=== PATIENT | female | born 1975 | race Caucasian/White ===

== ENCOUNTER 2016-06-23 06:21 | Inpatient (IN) | payer BC ==
--- NOTE | 2016-06-07 16:25 | HP ---
ADMISSION HISTORY AND PHYSICAL: DATE OF ADMISSION: 06/23/16 CHIEF COMPLAINT: Morbid obesity. HISTORY OF PRESENT ILLNESS: This is a 41-year-old female with type 2 diabetes who first presented to our office in January 2016 for bariatric surgical evaluation. She met with Dr. Camacho at that time and has had subsequent medically supervised weight loss visits. Baseline lab work on 01/19/16 showed normal serum TSH and morning cortisol. Her other labs were normal. Her vitamin D was in the low normal range and she has recently started a vitamin D supplement. She had had a prior EGD with Dr. Kendall in 2014 that was normal ( no evidence of hiatal hernia or significant evidence of reflux disease). A CLOtest was positive and she was treated for Helicobacter with resolution of her preexisting GERD symptoms. She has completed the remainder of the bariatric preoperative workup and has had a chance to discuss any questions with Dr. Camacho. She understands the indications for surgery, the risks, benefits and alternatives. She would like to proceed as scheduled with laparoscopic sleeve gastrectomy. PAST MEDICAL HISTORY: 1. Morbid obesity. 2. Type 2 diabetes. 3. PCOS. 4. GERD (see above). PREVIOUS SURGERIES: Right oophorectomy, 2005, for benign disease with prior cystectomy (she has experienced postoperative nausea and vomiting). CURRENT MEDICATIONS: 1. Metformin 500 mg b.i.d. 2. Levonest once daily (she will hold as of today in preparation for surgery because of DVT risk). 3. Vitamin D 1000 IU once daily. DRUG ALLERGIES: COMPAZINE (muscle contractions). IODINE (local reaction). BEE STINGS (local reaction). FAMILY HISTORY: Significant for colon cancer in her father who is living. Diabetes and morbid obesity in her mother who is living. There is no known family history of anesthesia problems, bleeding or clotting disorders. SOCIAL HISTORY: The patient is . She has an 11-year-old daughter at home. 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 She denies use of tobacco. Drinks alcohol rarely and denies use of other drugs. REVIEW OF SYSTEMS: General: No recent constitutional symptoms or acute illnesses. Cardiovascular: No chest pain, palpitations, history of hypertension , or heart murmur. Respiratory: No history of asthma, chronic cough, or shortness of breath. GI: See above. No lower GI symptoms. She did undergo colonoscopy also in 2014, which was a normal study with recommended followup of 5 years. : No problems reported. DIRECTOR PRODUCT DEVELOPMENT: She is up to date within the past year for breast and pelvic exams as well as mammogram and Pap smear, all reportedly normal. Endocrine: She is treated for type 2 diabetes. There is no history of thyroid dysfunction. She has been treated for PCOS, though has been asymptomatic recently. PHYSICAL EXAMINATION GENERAL: Well-nourished morbidly obese female in no acute distress. VITAL SIGNS: Height 69 inches, weight 279 pounds, BMI 41.2. Temperature 99.3, blood pressure 138/86, pulse 62, respirations 16. HEENT: Pupils equal, round, and reactive. EOMs intact. No conjunctival pallor. Oropharynx: Teeth in good repair. No intraoral lesions. NECK: No lymphadenopathy, thyromegaly, or masses. LUNGS: Clear to auscultation. No wheezes. HEART: Regular rate and rhythm. No murmur noted. BREASTS: Not examined. ABDOMEN: Soft, nontender to palpation. No palpable masses or organomegaly, though exam is limited by body habitus. EXTREMITIES: No edema. GENITALIA AND RECTAL: Not done. BACK: No spinous process or CVA tenderness. NEUROLOGICAL: Grossly intact. SKIN: Warm and dry. No suspicious rashes or lesions noted. She does have a slightly hyperpigmented, scaly-appearing rash in the upper abdomen and lower inframammary folds, possibly consistent with a fungal infection, i.e., pityriasis. There are no open skin lesions or signs of secondary infection. IMPRESSION: Morbid obesity. PLAN/RECOMMENDATIONS: Laparoscopic sleeve gastrectomy. AMBROSE GAGE CC: Dr. Alyssa Pollard; Rhonda Francois NP, at [facility] * [id number]/[facility] #: [id number] [facility]ITAL[facility]
[~2016-06-23 06:21] MED LIST: Buffered Lidocaine 1% SYRIN* 3 ML/SYR SYRINGE INTRADERM ONE; Famotidine IV* 10 MG/ML 2 ML (20 mg) IV ONE; Ondansetron INJ* 2 MG/ML VIAL IV PRN
[2016-06-23] MEDS ORDERED: ceFAZolin 2 GM PREMIX(*) 2 GM/50 ML BAG IVPB ONE (06:27)
[2016-06-23] MEDS ORDERED: ceFAZolin 1 GM in Dextrose (*) 1 GM/50 ML BAG IVPB ONE (06:27)
[2016-06-23] MEDS ORDERED: Scopolamine 1.5 mg* PATCH ONE (06:59)
[2016-06-23 07:17] LABS: UR Preg Kit Lot# 60301156
[2016-06-23 07:18] LABS: Manual Entry Verification AS; UR Preg Internal Control QC Line Present
[2016-06-23] MEDS ORDERED: Bupivacaine 0.25% EPI 200,000* 30 ML SDV ONE ×2 (07:20→08:17)
[2016-06-23] MEDS ORDERED: Atracurium* 10 MG/ML 10 ML VIAL ONE (07:31)
[2016-06-23] MEDS ORDERED: Morphine INJ* 10 MG/ML 1 ML SYRINGE ONE ×2 (07:31→09:13)
[2016-06-23] MEDS ORDERED: fentaNYL* 50 MCG/ML 2 ML VIAL (100 MCG VIAL) ONE ×2 (07:31→09:33)
[2016-06-23] MEDS ORDERED: Midazolam* 1 MG/ML 5 ML VIAL (5 MG) ONE (07:31)
[2016-06-23] MEDS ORDERED: KETAMINE HCL* 50 MG/ML 10 ML VIAL ONE (07:31)
[2016-06-23] MEDS ORDERED: Clindamycin 900 MG IVPREMIX(* 900 MG/50 ML SDV IV ONE (07:43)
[2016-06-23] MEDS ORDERED: Propofol* 10 MG/ML 20 ML BTL IV PUSH ONE (08:23)
[2016-06-23] MEDS ORDERED: Lidocaine 2% PF* 5 ML VIAL ONE (08:23)
[2016-06-23] MEDS ORDERED: EPHEDrine (Pressors)* 50 MG/ML VIAL ONE (08:23)
[2016-06-23] MEDS ORDERED: Dexamethasone IV* 4 MG/ML 1 ML (4 MG) ONE (08:23)
[2016-06-23] MEDS ORDERED: Glycopyrrolate IV* 0.2 MG/ML 1 ML VIAL ONE (08:23)
[2016-06-23] MEDS ORDERED: Ondansetron INJ* 2 MG/ML VIAL ONE ×3 (08:23→11:12)
[2016-06-23] MEDS ORDERED: Neostigmine Methylsulfate* 2 MG/2 ML SYRINGE ONE (08:23)
[2016-06-23] MEDS ORDERED: Phenylephrine INJ* 10 MG/ML 1 ML VIAL (10 MG) ONE (08:23)
--- NOTE | 2016-06-23 08:57 | SURGPN ---
Brief Operative Note - Surgery Procedures: Procedures Pre-OP Diagnoses: Clinically severe obesity Post-op Diagnosis: same Procedure: Laparoscopic sleeve gastrectomy Surgeon: Doug Asst: Reji Calderonthesia: AUDRA De Luna EBL: minimal IVF: 1200cc LR Specimen: portion of stomach Drains: none
[2016-06-23] MEDS ORDERED: hydrALAZINE IV* 20 MG/ML VIAL ONE (09:04)
[2016-06-23] MEDS ORDERED: hydrALAZINE IV* 20 MG/ML VIAL IV SLOW PU ONE (09:15)
[2016-06-23] MEDS: Morphine INJ* 2 MG/ML 1 ML SYRINGE IV PRN ×3 (09:15→10:39)
[2016-06-23] MEDS: fentaNYL* 50 MCG/ML 2 ML VIAL (100 MCG VIAL) IV PRN ×3 (09:37→10:37)
[2016-06-23] MEDS: Ondansetron INJ* 2 MG/ML VIAL IV PRN ×2 (11:18→17:46)
[2016-06-23] MEDS: Famotidine IV* 10 MG/ML 2 ML (20 mg) IV SCH ×2 (11:47→20:39)
[2016-06-23] MEDS ORDERED: Scopolamine 1.5 mg* PATCH TRANSDERM ONE (12:00)
[2016-06-23] MEDS: Heparin VIAL(*) 5000 UNITS/ML VIAL (FIVE THOUSAND) SUBCUT SCH ×2 (14:37→22:08)
[2016-06-23] MEDS ORDERED: Metoclopramide IV* 5 MG/ML 2 ML VIAL ONE (15:14)
[2016-06-23] MEDS: Ketorolac INJ* 30 MG/ML 1 ML VIAL IV PRN (20:36)
--- NOTE | 2016-06-24 01:44 | OP ---
DATE OF OPERATION: 06/23/16 - ROOM #353 DATE OF : 73 SURGEON: Roderick Camacho MD ASSURANCE ANALYST: Sergio Mendoza MD ANESTHESIOLOGIST: Dr. De Luna. ANESTHESIA: General anesthesia. PRE-OP DIAGNOSES: 1. Morbid obesity. 2. Type 2 diabetes. 3. Polycystic ovary disease. 4. Gastroesophageal reflux disease. POST-OP DIAGNOSES: OPERATIVE PROCEDURE: Laparoscopic sleeve gastrectomy. ESTIMATED BLOOD LOSS: Minimal. FLUIDS: 1200 cc of LR given. SPECIMEN: Portion of stomach. DRAINS: None. COUNTS: Lap pad count and instrument count correct at the end of the procedure. DESCRIPTION OF PROCEDURE: The patient was identified in the preoperative area. Case discussed with her and her and she agreed. Consent was signed. She understood the possible complications, which included but not limited to bleeding, infection, need for additional procedures, prolonged hospital course, leak, and even . The patient was marked and then brought to the operating room, placed on the operating table in the supine position. Preoperative antibiotics were given. Sequential devices were placed in bilateral lower extremities. General anesthesia was induced. The patient's abdomen was prepped and draped in the standard surgical fashion. Time-out was performed. Folds of the umbilicus were elevated anteriorly and a Veress needle was inserted into the abdominal cavity, which was then allowed to insufflate to a pressure of 15 mmHg. The patient tolerated the insufflation well. [place] between the xiphoid and the umbilicus, just left the midline, a 12-mm trocar was inserted. Laparoscope was inserted through this and there was no evidence of injury from the trocar. The Veress needle was then removed and additional trocars were then placed in the following position. Two 5 mm in the left upper quadrant and a 15 mm in the right upper quadrant. Table was placed in the steep reverse Trendelenburg. Liver appeared intact without lesion. Stomach was decompressed. There were no adhesions. A Anton retractor was inserted through a subxiphoid incision and the liver was retracted anteriorly into the right. This exposed the gastroesophageal fat pad, which was grasped and retracted towards the right lower quadrant. Blunt dissection was then carried out to expose the left crura. There was no evidence of hiatal hernia. Next, approximately 5 cm was measured from the pylorus along the greater curvature. A retrogastric window was made and the vasculature to the greater curvature was then taken with LigaSure device, brought up to the angle of His. Posterior attachments were similarly taken until the stomach could be entirely rotated along its longitudinal axis. Next, a 60-mm black RADHA stapler was placed at the 5 cm along the greater curvature extending towards the incisura. This was clamped and a 40-Indian bougie was then inserted beyond this into the distal stomach. The stapler was then fired and additional 60-mm purple RADHA stapling firings were done. These were all had enforcement strips. We stayed close to the bougie throughout and the last staple was a 45 mm purple stapling with enforcement straps. The staple line lay straight without cord screwing. The bougie was removed without incident. Review of the abdomen showed some oozing at the angle of His. A gauze was placed into this and there was no active bleeding. This was reabsorbed and then removed. The resected portion of stomach was then placed in endoscopic retrieval bag and brought out through the right upper quadrant port site, passed off as specimen and the defect at this site was then reapproximated with an 0 Polysorb suture using an Endoclose device. The abdomen was allowed to collapse. Trocars removed under direct vision. All five skin incisions were reapproximated with skin dora followed by sterile dressing. The patient was awoken up, tolerated the procedure well, and was transferred to the PACU in stable condition. CC: Kendal Francois NP; Dr. Alyssa Pollard; [facility] * [id number]/[facility] #: [id number] MTDD
[2016-06-24] MEDS: Ondansetron INJ* 2 MG/ML VIAL IV PRN ×2 (02:35→09:51)
[2016-06-24] MEDS: Ketorolac INJ* 30 MG/ML 1 ML VIAL IV PRN ×3 (02:35→23:05)
[2016-06-24] MEDS: Heparin VIAL(*) 5000 UNITS/ML VIAL (FIVE THOUSAND) SUBCUT SCH ×3 (06:02→21:12)
[2016-06-24] MEDS: D5W 1/2 NS KCl 20 Meq 1000 ML* 1,000 ML IV SCH (09:20)
[2016-06-24] MEDS: HYDROmorphone* 1 MG/ML 1 ML SYR IV PRN ×2 (09:46→21:12)
[2016-06-24] MEDS: Famotidine IV* 10 MG/ML 2 ML (20 mg) IV SCH ×2 (09:53→21:12)
--- NOTE | 2016-06-24 10:01 | PN ---
Progress Note - Progress Note SOAP: Subjective: Pt doing well. Significant nausea yesterday evening, responded to reglan. Pt is feeling better today. Thirsty and wants to go home. ruq abdo pain. Objective: af vss uo good lungs clear abdo: soft/incisional tenderness dressings intact no calf tenderness Assessment: POD1 sleeve gastrectomy Plan: UGI possible d/c home today pain control
--- NOTE | 2016-06-24 10:49 | RAD ---
HISTORY: Status post sleeve gastrectomy, rule out leak COMPARISONS: None relevant TECHNIQUE: A single contrast fluoroscopic study was performed of the esophagus and upper GI tract. Water-soluble liquid contrast was administered under fluoroscopic observation. Multiple digital spot images were obtained Total fluoroscopy time is 0.6 minutes. FINDINGS: ESOPHAGUS: The esophagus is normal in contour, course, and caliber. There is no stricture or web. Contrast passes easily through the gastroesophageal junction into the stomach. There is normal esophageal motility. STOMACH: The patient is status post sleeve gastrectomy. Contrast passes easily through the gastric remnant through the pylorus into the proximal duodenum. There is no appreciable extravasation. DUODENUM: The pyloric bulb is smooth. The duodenal mucosal pattern is normal. The duodenal sweep is normal. IMPRESSION: NO APPRECIABLE OBSTRUCTION OR EXTRAVASATION. CPT II Codes: 6045F
[2016-06-24] MEDS: Metoclopramide IV* 5 MG/ML 2 ML VIAL IV PRN ×2 (14:55→21:12)
--- NOTE | 2016-06-24 17:07 | PN ---
Progress Note - Progress Note SOAP: Subjective: Feeling better, less pain and nausea. Not quiet ready to go home tonight. Objective: Awake and alert, in NAD Abd soft, NT and ND Assessment: POD#1 post op LSG, doing well. Plan: Discharge in AM.
[2016-06-25] MEDS: D5W 1/2 NS KCl 20 Meq 1000 ML* 1,000 ML IV SCH (03:48)
[2016-06-25] MEDS: Heparin VIAL(*) 5000 UNITS/ML VIAL (FIVE THOUSAND) SUBCUT SCH (06:30)
[2016-06-25 08:06] VITALS: BP 147/86
[2016-06-25] MEDS ORDERED: HYDROcodone/ACET. 7.5/325 LIQ* 15 ML UDC PO PRN (09:15)
[2016-06-25] MEDS ORDERED: HYDROcodone/ACET. 7.5/325 LIQ* 15 ML UDC ONE (09:21)
--- NOTE | 2016-06-25 09:22 | SURGPN ---
Subjective - Introduction -: Reports doing much better this AM, no nausea, less pain, mostly incisonal. No fever or chills. Tolerating stage I diet well. Ready to go home. - Medications -: Active Medications Generic Name Dose Route Start Last Admin Trade Name Freq PRN Reason Stop Dose Admin Hydrocodone Bitart/Acetaminophen 15 ml 06/25/16 09:15 Nortab 7.5/325 Liq* PO Q6H PRN PAIN Famotidine 20 mg 06/23/16 11:00 06/24/16 21:12 Pepcid Iv* IV 20 mg Q12HR NANI Administration Heparin Sodium (Porcine) 5,000 units 06/23/16 14:00 06/25/16 06:30 Heparin Vial(*) SUBCUT 5,000 units Q8HR NANI Administration Hydromorphone HCl 0.5 mg 06/23/16 08:57 06/24/16 21:12 Dilaudid Iv* IV 0.5 mg Q3H PRN Administration PAIN - SEVERE Potassium Chloride/Dextrose 1,000 mls @ 125 mls/hr 06/24/16 08:58 06/25/16 03 :48 D5w 1/2 Ns Kcl 20 Meq 1000 Ml* IV 125 mls/hr PER RATE NANI Administration Metoclopramide HCl 10 mg 06/23/16 15:18 06/24/16 21:12 Reglan Iv* IV 10 mg Q6H PRN Administration NAUSEA Ondansetron HCl 4 mg 06/23/16 08:57 06/24/16 09:51 Zofran Inj* IV 4 mg Q6H PRN Administration NAUSEA/VOMITING Pharmacy Profile Note 1 note 06/26/16 11:59 Scopolomine Patch Remove* PATCH OFF 06/26/16 12:00 ONCE ONE Objective - Objective -: Awake and alert, walking down damon, in NAD. - Intake and Output -: Intake & Output 06/23/16 06/24/16 06/25/16 06/26/16 06:59 06:59 06:59 06:59 Intake Total 3200 4429 Output Total 2950 1300 600 Balance 250 3129 -600 Weight 268 lb Intake: IV Fluids 3148 3529 D5 1/2 WIT 20 KCL 3529 LR 3148 IVPB 52 LR 52 Oral 0 900 Output: Urine 2950 1300 600 Other: Estimated Void Medium Medium # Bowel Movements 0 # Voids 1 1 Surgical Physical Exam - Comments -: VSS, afebrile Abdomen soft, NT, ND. Incisions C/D/I, dressings removed. Ext. no edema Assessment and Plan - Assessment -: POD#2, s/p LSG, doing very well and ready for discharge. - Plan Surgical Plan of Care: Discontinue IV, Discharge Additional Comments: Plan on d/c to home today. F/U with Dr. Camacho next week.
[2016-06-25] MEDS: Famotidine IV* 10 MG/ML 2 ML (20 mg) IV SCH (09:25)
--- NOTE | 2016-06-25 23:33 | DS ---
DISCHARGE SUMMARY: DATE OF ADMISSION: 06/23/16 DATE OF DISCHARGE: 06/25/16 ADMISSION DIAGNOSIS: Morbid obesity. DISCHARGE DIAGNOSIS: Morbid obesity. ADMITTING PHYSICIAN: Dr. Roderick Camacho. CONSULTATIONS: None. PROCEDURE: Laparoscopic sleeve gastrectomy on 06/23/16. HISTORY OF PRESENT ILLNESS: Mrs. Weinstein is a pleasant 41-year-old female who was seen in the office to discuss weight loss surgery. The patient has a history of type 2 diabetes who first presented to our office back in January 2016 to evaluate for a bariatric surgery. She was seen by Dr. Camacho at that time and she subsequently had some medically supervised weight loss visits. Due to her morbid obesity, she had associated symptoms including type 2 diabetes , GERD, and sleep apnea. The patient went through support group and found to be a good candidate for laparoscopic sleeve gastrectomy for which she was scheduled to do it on a later date. HOSPITAL COURSE: The patient was admitted on the same day in anticipation for surgery. She underwent a laparoscopic sleeve gastrectomy on 06/23/16 that went quite smoothly. After recovery, the patient was admitted to the surgical floor for observation. She did extremely well, on next day postoperatively was only mild nausea, and tolerated with Zofran. She had some incisional tenderness that was relieved using Dilaudid as needed. She was ambulatory on the first day postoperatively with no difficulty. She was started on stage 1 bariatric diet that she tolerated well and continued to improve later that day. She was seen again on the second day postoperatively, on that morning she was ambulatory out of bed. Her nausea was very much relieved and her pain was well tolerated using Lortab elixir as needed. She was ready to be discharged and will be seen in the office next week for a followup. DISCHARGE MEDICATIONS: Include: 1. Lortab elixir as needed for pain. 2. Metformin 500 mg b.i.d. 3. Levonest once daily. 4. Vitamin D 1000 International Units once daily. PROBLEM LIST: Morbid obesity, status post laparoscopic sleeve gastrectomy on . [facility] AMBROSE [facility] CC: Dr. Alyssa Pollard; Rhonda Francois NP, Family Medicine * [id number]/[facility] #: [id number] MTDD
[2016-06-26] MEDS ORDERED: Scopolomine PATCH Remove* 1 NOTE MISC PATCH OFF ONE (11:59)
== END 2016-06-25 11:30 | disposition home or self-care (01) | DRG 403 ==
LOC: AA 06:21 → SSU 11:01
PROVIDERS: ADMIT Surgery; ATTEND Surgery
PROC: 0DB64Z3 Excision of Stomach, Percutaneous Endoscopic Approach, Vertical (ICD-10-PCS; principal; 2016-06-23 07:45)
DX: E66.01 Morbid (severe) obesity due to excess calories (principal); E11.9 Type 2 diabetes mellitus without complications; G47.30 Sleep apnea, unspecified; K21.9 Gastro-esophageal reflux disease without esophagitis; Z79.84 Long term (current) use of oral hypoglycemic drugs; Z88.8 Allergy status to other drugs, medicaments and biological substances; Z91.030 Bee allergy status; Z83.3 Family history of diabetes mellitus; Z80.0 Family history of malignant neoplasm of digestive organs; Z68.41 Body mass index [BMI] 40.0-44.9, adult
CPT/HCPCS: 74246; 81025; 88307; A9270-GY; J0360; J0690; J1100; J1170; J1644; J1885; J2250; J2270; J2405; J2704; J3010